=== PATIENT | female | born 1985 | race Caucasian/White ===

== ENCOUNTER 2017-01-01 20:26 | Emergency (ER) | payer MEDICAID | END 2017-01-01 22:14 | disposition home or self-care (01) | LOC: D.ER 20:26 | DX: N61.1 Abscess of the breast and nipple (principal); J45.909 Unspecified asthma, uncomplicated ==

== ENCOUNTER 2017-01-06 18:22 | Emergency (ER) | payer MEDICAID | END 2017-01-06 19:32 | disposition home or self-care (01) | LOC: D.ER 18:22 | DX: N61.1 Abscess of the breast and nipple (principal); J45.909 Unspecified asthma, uncomplicated ==

== ENCOUNTER 2018-01-12 14:38 | Emergency (ER) | payer MEDICAID ==
[~2018-01-12] VITALS: Ht 160 cm; Wt 118.2 kg
[2018-01-12 14:45] VITALS: Ht 160 cm; Wt 118.2 kg
[2018-01-12] MEDS ORDERED: VISTARIL25 MG PO (15:29)
[2018-01-12] MEDS ORDERED: KEFLEX500 MG PO (15:29)
[2018-01-12] MEDS ORDERED: MEDROL DOSE PACK4 MG PO (15:30)
[2018-01-12 15:46] VITALS: BP 152/87
== END 2018-01-12 15:49 | disposition home or self-care (01) ==
LOC: D.ER 14:38
DX: S30.861A Insect bite (nonvenomous) of abdominal wall, initial encounter (principal); S40.862A Insect bite (nonvenomous) of left upper arm, initial encounter; S40.861A Insect bite (nonvenomous) of right upper arm, initial encounter; W57.XXXA Bitten or stung by nonvenomous insect and other nonvenomous arthropods, initial encounter; Y93.89 Activity, other specified; Y92.039 Unspecified place in apartment as the place of occurrence of the external cause; F17.200 Nicotine dependence, unspecified, uncomplicated

== ENCOUNTER 2018-06-17 18:00 | Emergency (ER) | payer SELFPAY ==
[~2018-06-17] VITALS: Ht 160 cm; Wt 122.3 kg
[~2018-06-17 18:00] MED LIST: KEFLEX500 MG PO; MEDROL DOSE PACK4 MG PO; VISTARIL25 MG PO
[2018-06-17 18:06] VITALS: Ht 160 cm; Wt 122.3 kg
[2018-06-17 18:45] LABS: BASOPHILS 0.3 % (0-2); EOSINOPHILS 2.3 % (0-7); HEMATOCRIT 39.6 % (36.0-48.0); IMMATURE GRANULOCYTES 0.3 % (0-5); LYMPHOCYTES 24.6 % (15-50); MCH 28.3 pg (26.0-34.0); MCHC 32.8 g/dL (31.0-37.0); MCV 86.3 fL (80.0-100.0); MEAN PLATELET VOLUME 10.4 fL (7.4-10.4); MONOCYTES 9.8 % (2-11); NEUTROPHILS 62.7 % (40-80); PLATELET COUNT 280 10x3/uL (130-400); RBC 4.59 10x6/uL (4.00-5.40); RDW 13.2 % (11.5-14.5); WBC 9.2 10x3/uL (4.8-10.8)
[2018-06-17 19:11] LABS: ALBUMIN 3.6 g/dL (3.4-5.0); ALKALINE PHOSPHATASE 63 U/L (46-116); ALT (SGPT) 35 U/L (10-68); BILIRUBIN - TOTAL 0.47 mg/dL (0.2-1.3); CALC OSMOLALITY 279 mosm/kg (275-300); CALCIUM 8.7 mg/dL (8.5-10.1); CARBON DIOXIDE 27.5 mmol/L (21.0-32.0); CHLORIDE - SERUM 105 mmol/L (98-107); CREATININE - SERUM 0.9 mg/dL (0.6-1.3); GLUCOSE 81 mg/dL (74-106); POTASSIUM - SERUM 3.4 mmol/L (3.5-5.1); PROTEIN - SERUM 7.4 g/dL (6.4-8.2); SODIUM 141 mmol/L (136-145); UREA NITROGEN 12 mg/dL (7-18); eGFR NON AFRICAN AMERICAN 77 mL/min (90-120)
[2018-06-17 19:19] LABS: PRO BNP 30 pg/mL (0-125)
[2018-06-17 21:27] VITALS: BP 123/64
== END 2018-06-17 21:25 | disposition home or self-care (01) ==
LOC: D.ER 18:00
PROVIDERS: Family Medicine
DX: I87.303 Chronic venous hypertension (idiopathic) without complications of bilateral lower extremity (principal); K43.9 Ventral hernia without obstruction or gangrene; F17.200 Nicotine dependence, unspecified, uncomplicated

== ENCOUNTER 2018-10-26 14:00 | Emergency (ER) | payer MEDICAID ==
[2018-10-26 14:16] VITALS: BMI 44.3
[2018-10-26 15:03] LABS: APPEARANCE HAZY (CLEAR); BILIRUBIN NEGATIVE (NEGATIVE); COLOR YELLOW (YELLOW); EPITHELIAL CELLS 0-5 /hpf (0-5); GLUCOSE NEGATIVE (NEGATIVE); KETONE NEGATIVE (NEGATIVE); NITRITE POSITIVE (NEGATIVE); PROTEIN 2+ mg/dL (NEGATIVE); SPECIFIC GRAVITY 1.015 (1.005-1.020); UROBILINOGEN NORMAL (NORMAL)
[2018-10-26 15:04] LABS: BACTERIA MODERATE /hpf (NONE SEEN)
[2018-10-26] MEDS ORDERED: PHENAZOPYRIDIN100 MG PO (16:02)
[2018-10-26] MEDS ORDERED: MACROBID100 MG PO (16:02)
[2018-10-26 16:47] VITALS: BP 134/68
== END 2018-10-26 16:47 | disposition home or self-care (01) ==
LOC: D.ER 14:00
PROVIDERS: Family Medicine
DX: N39.0 Urinary tract infection, site not specified (principal); M54.5 Low back pain

== ENCOUNTER 2019-08-26 11:51 | Emergency (ER) | payer OTHER ==
[~2019-08-26] VITALS: Ht 162.6 cm; Wt 113.6 kg
[~2019-08-26 11:51] MED LIST changes: +MACROBID100 MG PO; +PHENAZOPYRIDIN100 MG PO
[2019-08-26 11:55] VITALS: BP 154/88; Ht 162.6 cm; Wt 113.6 kg
[2019-08-26] MEDS ORDERED: AMOXICILLIN500 M1 PO (12:14)
[2019-08-26] MEDS ORDERED: NAPROSYN500 MG PO (12:14)
== END 2019-08-26 13:08 | disposition home or self-care (01) ==
LOC: D.ER 11:51
DX: K04.7 Periapical abscess without sinus (principal); K08.89 Other specified disorders of teeth and supporting structures